=== PATIENT | female | born 1990 | race Asian ===

== ENCOUNTER → 2017-05-02 | Outpatient (CLI) | payer BC | END | disposition home or self-care (01) | LOC: C.PAPS 08:25 | PROVIDERS: ATTEND Obstetrics & Gynecology | DX: Z34.82 Encounter for supervision of other normal pregnancy, second trimester (principal) ==

== ENCOUNTER → 2017-05-02 | Outpatient (CLI) | payer BC ==
[2017-05-02 17:41] LABS: BASO % 0.1 %; BASO ABS # 0.01 K/uL (0-0.2); COMPLETE YES; EOS % 0.6 %; HEMATOCRIT 33.8 % (37-47); IG% 0.3 %; LYMPH % 28.1 %; LYMPH ABS # 2.82 K/uL (1.2-3.4); MEAN CELL VOLUME 70.3 fL (80-100); MEAN CORPUSCULAR HEMOGLOBIN 22.7 pg (25-34); MEAN CORPUSCULAR HGB CONC 32.2 g/dl (32-36); MEAN PLATELET VOLUME 11.4 fL (7.4-10.4); MONO % 5.2 %; NEUT % 65.7 %; PLATELET COUNT 294 K/uL (130-400); RED BLOOD COUNT 4.81 M/uL (4.2-5.4); WHITE BLOOD COUNT 10.05 K/uL (4.8-10.8)
[2017-05-02 18:22] LABS: URINE APPEARANCE CLEAR (CLEAR); URINE BILIRUBIN NEG (NEG); URINE COLOR YELLOW; URINE EPITHELIAL CELL AUTO >30 /lpf (0-5); URINE NITRITE NEG (NEG); URINE SPECIFIC GRAVITY 1.029 (1.000-1.030); UROBILINOGEN NEG (NEG)
[2017-05-02 18:28] LABS: MANUAL MICROSCOPIC REQUIRED? NO; REVIEW REQ? YES
[2017-05-05 13:34] LABS: CHLAMYDIA TRACH RNA*** NOT DETECTED (NOT DETECTED); GC (NEIS GONORRHOEAE)RNA** NOT DETECTED (NOT DETECTED)
== END | disposition home or self-care (01) ==
LOC: C.LAB1850 16:39
PROVIDERS: ATTEND Obstetrics & Gynecology
DX: Z34.82 Encounter for supervision of other normal pregnancy, second trimester (principal); Z3A.00 Weeks of gestation of pregnancy not specified

== ENCOUNTER → 2017-06-03 | Outpatient (CLI) | payer BC ==
[2017-06-03 18:24] LABS: GTGD 50 Grams
== END | disposition home or self-care (01) ==
LOC: C.LAB 17:27
PROVIDERS: ATTEND Obstetrics & Gynecology
DX: Z34.82 Encounter for supervision of other normal pregnancy, second trimester (principal)

== ENCOUNTER → 2017-08-09 | Outpatient (CLI) | payer OTHER ==
[~2017-08-09] MED LIST: FERR1TAB23 PO; MTR600X PO; OXYC-57 PO; PRENTAB65 PO
[2017-08-09 17:45] LABS: HEMATOCRIT 33.1 % (37-47); HEMOGLOBIN 10.6 g/dL (12.0-16.0)
== END | disposition home or self-care (01) ==
LOC: C.LAB1850 17:03
PROVIDERS: ATTEND Obstetrics & Gynecology
DX: Z34.82 Encounter for supervision of other normal pregnancy, second trimester (principal)

== ENCOUNTER → 2017-10-04 | Outpatient (CLI) | payer OTHER | END | disposition home or self-care (01) | LOC: C.LABSPEC 17:36 | PROVIDERS: ATTEND Obstetrics & Gynecology | DX: Z34.83 Encounter for supervision of other normal pregnancy, third trimester (principal) ==

== ENCOUNTER 2017-10-27 17:34 | Outpatient (CLI) | payer OTHER ==
[~2017-10-27] VITALS: Ht 160 cm; Wt 77.0 kg
[~2017-10-27 17:34] MED LIST changes: -MTR600X PO; -OXYC-57 PO
[2017-10-27 17:57] VITALS: Ht 160 cm; Wt 77.0 kg
== END 2017-10-27 20:11 | disposition home or self-care (01) ==
LOC: C.OPB 17:34 → C.LD 17:35 → C.OPB 20:11
PROVIDERS: ATTEND Obstetrics & Gynecology
DX: O62.9 Abnormality of forces of labor, unspecified (principal); O26.893 Other specified pregnancy related conditions, third trimester; Z3A.00 Weeks of gestation of pregnancy not specified

== ENCOUNTER 2017-10-28 07:21 | Inpatient (IN) | payer OTHER ==
[2017-10-21 11:45] VITALS: BMI 29.0
[2017-10-21 12:21] LABS: BASO % 0.1 %; BASO ABS # 0.01 K/uL (0-0.2); EOS % 0.5 %; EOS ABS # 0.04 K/uL (0-0.5); HEMOGLOBIN 12.1 g/dL (12.0-16.0); IG# 0.02 K/uL (0.00-0.02); LYMPH ABS # 1.92 K/uL (1.2-3.4); MEAN CELL VOLUME 74.1 fL (80-100); MEAN CORPUSCULAR HEMOGLOBIN 23.6 pg (25-34); MEAN CORPUSCULAR HGB CONC 31.8 g/dl (32-36); MONO % 5.7 %; NEUT % 71.5 %; NEUT ABS # 6.23 K/uL (1.4-6.5); PLATELET COUNT 224 K/uL (130-400); RED CELL DISTRIBUTION WIDTH CV 15.7 % (11.5-14.5); RED CELL DISTRIBUTION WIDTH SD 42.6 fL (36.4-46.3); WHITE BLOOD COUNT 8.72 K/uL (4.8-10.8)
--- NOTE | 2017-10-25 13:18 | HISTORY & PHYSICAL EXAMINATION ---
DATE OF ADMISSION: 10/28/2017 PREOPERATIVE DIAGNOSES: 1. Intrauterine at 40 and 1/7 weeks. 2. History of previous section, presents for repeat section. HISTORY OF PRESENT ILLNESS: Mercedes is a 27-year-old [place] female 2, para 1-0-0-1 with an EDC of 10/27/2017 who presents on 10/28/2017 for a repeat section. Her first was in February 2016. This was a section delivery for a 7-pound 7-ounce baby for failure to progress. This has been uncomplicated. 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 She has presented for routine care. She has had no labor symptoms up to her visit on October 21 and noted good movement. PAST OBSTETRIC AND GYNECOLOGIC HISTORY: As noted above. Denies abnormal Pap smears or sexually transmitted diseases. ALLERGIES: No known drug allergies. MEDICATIONS: vitamin with iron and clindamycin phosphate external gel. PAST MEDICAL HISTORY: The patient is overall healthy. Denies thyroid disease, asthma, heart disease, heart murmur, diabetes, kidney or liver problems. She does state she had elevated blood pressures in her last . PAST SURGICAL HISTORY: Includes a in February 2016, but no other surgeries. SOCIAL HISTORY: The patient denies tobacco, alcohol or drug use. She lives with her spouse and child. PHYSICAL EXAMINATION: GENERAL: This is a well-developed, well-nourished [place] female in no acute distress. VITAL SIGNS: Blood pressure 122/84, weight 169.6 pounds. NECK: Supple without thyromegaly or lymphadenopathy. CHEST: Clear to auscultation bilaterally. CARDIOVASCULAR: Regular rate and rhythm without murmurs, gallops or rubs. ABDOMEN: Gravid and nontender. EXTREMITIES: Show trace edema, but are otherwise benign. PELVIC: Shows the cervix is closed to fingertip, 50% and -2 station. The baby is vertex. LABORATORY DATA: Blood type O positive, antibody negative, Pap normal, rubella immune, RPR nonreactive, hepatitis B negative, HIV negative, chlamydia and gonorrhea cultures negative. Glucose tolerance test x2 within normal limits. Declined chromosomal testing. GBS positive. ASSESSMENT: This is a 3, para 1-0-0-1 [place] female who presents for a repeat section. The risks of the procedure were discussed with the patient including the risks of anesthesia, bleeding requiring transfusion, infection and poor wound healing, damage to surrounding structures including bowel, bladder, vessels, nerves and ureters with need for further surgery, hospitalization or attention. Discussed the possible injury to the baby. Discussed the other risks of any surgery including heart attack, blood clot, stroke or . Consent reviewed and signed. Surgery is planned for October 28.
[~2017-10-28] VITALS: Ht 160 cm; Wt 76.0 kg
[2017-10-28] VITALS (16 sets, daily range): BP systolic 108–144; BP diastolic 70–85; PULSE 66–90; TEMP 36.9–37.3; O2SAT 96–100; Ht 160 cm; Wt 76.0 kg
[2017-10-28] MEDS ORDERED: CITRIC ACID/SODIUM CITRATE 15 ML UDC PO ONE (08:00)
[2017-10-28] MEDS ORDERED: LACTATED RINGER'S 1000ML 1,000 ML IV SCH (08:00)
[2017-10-28] MEDS ORDERED: CEFAZOLIN IV 2,000 MG in SYRINGE 0 ML IV SCH (08:00)
[2017-10-28 08:25] LABS: BASO % 0.1 %; BASO ABS # 0.01 K/uL (0-0.2); EOS % 0.1 %; EOS ABS # 0.01 K/uL (0-0.5); HEMATOCRIT 36.7 % (37-47); HEMOGLOBIN 12.1 g/dL (12.0-16.0); IG# 0.04 K/uL (0.00-0.02); LYMPH ABS # 1.76 K/uL (1.2-3.4); MEAN CELL VOLUME 73.5 fL (80-100); MEAN CORPUSCULAR HEMOGLOBIN 24.2 pg (25-34); MONO % 3.3 %; MONO ABS # 0.36 K/uL (0.11-0.59); NEUT % 80.1 %; NUCLEATED RED BLOOD CELL ABS 0.03 K/uL (0-0); PLATELET COUNT 227 K/uL (130-400); RED CELL DISTRIBUTION WIDTH CV 15.5 % (11.5-14.5); RED CELL DISTRIBUTION WIDTH SD 41.3 fL (36.4-46.3); WHITE BLOOD COUNT 10.98 K/uL (4.8-10.8)
--- NOTE | 2017-10-28 08:48 | History & Physical Bridge Note ---
H&P Re-Evaluation Bridge Note: I have examined the patient, reviewed the History & Physical and in the interval since the performance of the History & Physical I have noted the following changes of clinical significance: Patient is labor and delivery over the weekend with contractions. No change in cervix. Patient had first c/s in [place]. We have no record of the delivery note. Therefore, we have recommended repeat c/s. Plan to proceed.
[2017-10-28] MEDS ORDERED: FENTANYL CITRATE INJ 50 MCG/1 ML 2 ML VIAL ONE (09:23)
[2017-10-28] MEDS ORDERED: MoRPHine SULFATE PF 1 MG/ML 10 ML AMP/VIAL ONE (09:24)
[2017-10-28] MEDS ORDERED: OXYTOCIN INJ 10 UNITS/ML VIAL ONE ×2 (09:26→10:15)
[2017-10-28] MEDS ORDERED: PHENYLEPHRINE HCL INJ 10 MG/ML VIAL ONE (09:26)
[2017-10-28] MEDS ORDERED: NALOXONE HCL INJ 0.08 MG in SYRINGE 1.8 ML IV PRN (10:18)
[2017-10-28] MEDS ORDERED: SODIUM CHLORIDE 0.9% 1000ML 1,000 ML IV PRN (10:18)
[2017-10-28] MEDS ORDERED: LACTATED RINGER'S 1000ML 500 ML IV PRN (10:18)
[2017-10-28] MEDS ORDERED: NALOXONE HCL INJ 1 MG in SODIUM CHLORIDE 0.9% 1000ML 1,000 ML IV PRN (10:18)
--- NOTE | 2017-10-28 10:26 | [facility] Post Operative Brief Note ---
Immediate Operative Summary Operative Date Oct 28, 2017. Pre-Operative Diagnosis 40 Weeks Gestation; Caesarean Section with Unknown Scar; Pt desires Repeat Caesarean Section. Post-Operative Diagnosis Same as Preop Procedure(s) Performed Live Male at [address] Chau Automobile Locator Surgeon(s) Dr. Coates Estimated Blood Loss 600 Findings Consistent with Post-Op Diagnosis Fluids (cc crystalloids) 2100cc Specimens Placenta (Hold) Cord Blood Drains barajas Anesthesia Type Spinal Complication(s) none Disposition Accompanied Pt To Recover: no Disposition: L&D
[2017-10-28] MEDS ORDERED: DIPHTHERIA/TETANUS/PERTUSSIS 0.5 ML SYR/VIAL IM. ONE (10:30)
[2017-10-28] MEDS ORDERED: LANOLIN OINT EXT PRN (10:30)
[2017-10-28] MEDS ORDERED: MoRPHine SULFATE 2 MG/ML CARP IV PRN (10:30)
[2017-10-28] MEDS ORDERED: DiphenhydrAMINE HCL 50 MG/ML VIAL IV PRN (10:30)
[2017-10-28] MEDS ORDERED: MoRPHine SULFATE PF 1 MG/ML 10 ML AMP/VIAL EPI PRN (10:30)
[2017-10-28] MEDS ORDERED: NALBUPHINE HCL INJ 10 MG/ML AMP IV PRN (10:30)
[2017-10-28] MEDS ORDERED: DC PCA PRN (10:30)
[2017-10-28] MEDS ORDERED: ONDANSETRON INJ 2 MG/ML 2 ML VIAL IV PRN (10:30)
[2017-10-28] MEDS ORDERED: NO NARCOTICS OR SEDATIVES SCH (10:30)
[2017-10-28] MEDS ORDERED: EpHEDrine SULFATE INJ 50 MG/ML AMP IV PRN (10:30)
[2017-10-28] MEDS ORDERED: MEPERIDINE HCL 25 MG/ML CARP IV PRN (10:30)
[2017-10-28] MEDS ORDERED: NALOXONE HCL 0.4 MG/1 ML VIAL/CARP IV PRN (10:30)
[2017-10-28] MEDS ORDERED: KETOROLAC TROMETHAMINE 30 MG/ML VIAL IV. PRN (10:30)
--- NOTE | 2017-10-28 11:01 | Anesthesiology Progress Note ---
Anesthesia Post Op Note Date & Time Oct 28, 2017 at 11:01 Notes Mental Status: alert / awake / arousable, participated in evaluation Pt Amnestic to Procedure: Yes Nausea / Vomiting: adequately controlled Pain: adequately controlled Airway Patency, RR, SpO2: stable & adequate BP & HR: stable & adequate Hydration State: stable & adequate Neuraxial Anesthesia: was administered, sensory block is resolving Anesthetic Complications: no major complications apparent
[2017-10-28] MEDS: OXYTOCIN INJ 20 UNITS in LACTATED RINGER'S 1000ML 1,000 ML IV SCH ×2 (11:11→20:04)
[2017-10-28] MEDS: SIMETHICONE 80 MG CHEW PO SCH ×3 (13:12→20:02)
--- NOTE | 2017-10-28 13:25 | OPERATIVE REPORT ---
DATE OF OPERATION: 10/28/2017 PREOPERATIVE DIAGNOSES: 1. Intrauterine at 40 weeks. 2. History of previous section in [place] with unknown scar. POSTOPERATIVE DIAGNOSES: Same. PROCEDURES: 1. Repeat lower transverse section. 2. Excision of a keloid scar. SURGEON: Marina Chau MD SANDWICH ARTIST: Socorro Coates, PGY1 ESTIMATED BLOOD LOSS: 600 mL. FLUIDS: 2200 mL. URINE OUTPUT: 150 mL clear yellow urine draining from the bladder at the end of the procedure. INDICATIONS: Rolando is a 2, para 1-0-0-1, who presents for repeat section. She had her first section for failure to progress/labor in [place]. We were unable to obtain the operative report, so she has an unknown scar. FINDINGS: Viable infant delivered from cephalic presentation. Apgars pending. Weight pending. Normal uterus, tubes, and ovaries were noted bilaterally. COMPLICATIONS: None. DRAINS: Warren. DISPOSITION: To recovery room in stable condition. DESCRIPTION OF PROCEDURE: The patient was taken to the operating room, where she was identified verbally and by bracelet. She was seated on the operating table where a spinal anesthetic was placed. She was then placed in dorsal supine position with a leftward tilt. A Warren catheter was placed sterilely. The patient was then prepped and draped in normal sterile fashion. A time-out was held identifying correct patient, procedure and positioning. The keloided incision was grasped with an Allis clamp and elevated and the incision was then removed using a knife. This was sent for pathology. The knife was then used to incise down to the fascia. Bleeding was attended to with Bovie electrocautery. The fascia was incised in the midline with the knife and taken out laterally with scissors. The superior edge of the fascial incision was grasped, elevated and the underlying layer of rectus muscle was taken off bluntly and with scissors. In a similar fashion, the inferior edge of the fascial incision was grasped and elevated and the underlying layer of rectus muscle was taken off bluntly and with scissors. The muscles were bluntly and sharply in the midline. The peritoneum was entered bluntly and was taken superiorly and inferiorly sharply with good visualization of the bladder. The incision was stretched. The bladder blade was placed. A bladder flap was created using sharp scissors to enter the vesicouterine peritoneum and taken out laterally. The bladder flap was created digitally with the four corner former machine operator's finger and sharply with the scissors. The hysterotomy incision was scored with a knife. The uterus was entered with a snap. Clear fluid was noted. The incision was then stretched with the four corner former machine operator's hand. The four corner former machine operator's hand was then placed into the uterus. The head was delivered atraumatically. There was no nuchal cord. The rest of the infant was then delivered with fundal pressure. The nose and mouth were bulb suctioned. There was immediate cry. The cord was clamped and cut. The was handed off to awaiting pediatricians for drying and attention. Cord blood was obtained. The placenta was manually extracted. The uterus was cleared of all clot and debris with moistened laparotomy sponges. The hysterotomy incision was then repaired in 2 layers, the first in a running locked layer and the second in an imbricating layer of 0 Vicryl. Three [id number] sutures of 0 Vicryl were needed for hemostasis. The posterior cul-de-sac was then irrigated and cleared of all clot and debris. Hysterotomy incision was again inspected and found to be intact. The uterus was reanteriorized and hysterotomy incision was inspected and found to be hemostatic. The muscles were reapproximated with several interrupted sutures of 0 Vicryl in the midline. The fascia was reapproximated starting at the edges and meeting in the midline. The subcuticular tissue was copiously irrigated with warm normal saline. The bottom part of the incision was undermined using Bovie electrocautery. Bleeding was attended to with Bovie electrocautery and then the skin was closed with subcuticular stitch of 4-0 Vicryl. All sponge, lap and needle counts were correct x2. The patient tolerated the procedure well and was taken to recovery room in stable condition. I attest to the content of the Intraoperative Record and any orders documented therein. Any exception s are noted below.
[2017-10-28] MEDS: DOCUSATE SODIUM 100 MG CAP PO SCH (20:02)
[2017-10-29] VITALS (7 sets, daily range): BP systolic 104–119; BP diastolic 68–83; PULSE 68–90; TEMP 36.8–37.2; O2SAT 96–100
[2017-10-29] MEDS ORDERED: PROMETHAZINE HCL INJ 25 MG in SODIUM CHLORIDE 0.9% 50ML 50 ML IV PRN (03:30)
[2017-10-29] MEDS ORDERED: OXYCODONE/ACETAMINOPHEN 5-325 TAB PO PRN (03:30)
[2017-10-29] MEDS ORDERED: ONDANSETRON INJ 2 MG/ML 2 ML VIAL IV PRN (03:30)
[2017-10-29] MEDS ORDERED: DC INTRASPINAL MORPHINE ONE (03:30)
[2017-10-29] MEDS ORDERED: DiphenhydrAMINE HCL 50 MG/ML VIAL IV PRN (03:30)
[2017-10-29 06:47] LABS: BASO % 0.2 %; BASO ABS # 0.03 K/uL (0-0.2); EOS % 0.8 %; EOS ABS # 0.11 K/uL (0-0.5); HEMOGLOBIN 11.2 g/dL (12.0-16.0); IG# 0.04 K/uL (0.00-0.02); LYMPH % 15.4 %; LYMPH ABS # 2.26 K/uL (1.2-3.4); MEAN CELL VOLUME 73.3 fL (80-100); MEAN CORPUSCULAR HEMOGLOBIN 24.1 pg (25-34); MEAN CORPUSCULAR HGB CONC 32.9 g/dl (32-36); MEAN PLATELET VOLUME 11.9 fL (7.4-10.4); MONO % 6.8 %; MONO ABS # 0.99 K/uL (0.11-0.59); NEUT % 76.5 %; NEUT ABS # 11.21 K/uL (1.4-6.5); PLATELET COUNT 195 K/uL (130-400); RED CELL DISTRIBUTION WIDTH CV 15.3 % (11.5-14.5); RED CELL DISTRIBUTION WIDTH SD 40.8 fL (36.4-46.3); WHITE BLOOD COUNT 14.64 K/uL (4.8-10.8)
--- NOTE | 2017-10-29 07:30 | Progress Note ---
Subjective Oct 29, 2017. Subjective conversation w/ patient, physical exam Ambulation: ambulating normally Voiding: no voiding problems Passing Gas: Yes Diet Tolerance: Regular Diet Lochia: Moderate Feeding Type: Breast Feeding Pain: minimal pain Comment: pt seen and assessed at bedside, no acute events overnight Review of Systems Constitutional: No fever, No chills Respiratory: No cough, No shortness of breath Cardiac: No chest pain, No edema Abdomen: + nausea (2 episodes last night, none today), No vomiting no headaches or calf pain Objective Vital Signs Date Time Temp Pulse Resp B/P (MAP) Pulse Ox O2 Delivery O2 Flow Rate FiO2 10/29/17 03:30 36.8 68 18 113/76 (88) 100 Room Air 10/29/17 03:30 18 100 10/29/17 02:30 16 97 10/29/17 01:30 16 96 10/29/17 00:30 18 100 10/28/17 23:30 18 98 10/28/17 23:15 99 Room Air 10/28/17 23:15 36.9 86 16 112/70 (84) 99 Room Air 10/28/17 22:30 16 96 10/28/17 21:30 18 100 10/28/17 20:30 16 100 10/28/17 19:40 37.0 66 16 108/72 (84) 99 Room Air 10/28/17 19:40 99 Room Air 10/28/17 19:30 16 99 10/28/17 18:30 18 98 10/28/17 17:30 20 99 10/28/17 16:30 16 99 10/28/17 15:30 Room Air 10/28/17 15:30 18 100 10/28/17 15:30 36.9 71 18 125/83 (97) 100 Room Air 10/28/17 14:30 18 100 10/28/17 14:30 37.1 90 18 126/85 (99) 100 Room Air 10/28/17 13:30 37.3 78 18 124/83 (97) 99 Room Air 10/28/17 13:30 18 99 10/28/17 13:07 36.9 73 16 114/74 (87) 100 Room Air 10/28/17 13:00 36.9 73 16 114/74 (87) 100 Room Air 10/28/17 12:30 37.2 68 20 144/80 (101) 99 Room Air 10/28/17 12:30 Room Air 10/28/17 12:30 20 99 Physical Exam General Appearance: WELL-APPEARING, NO APPARENT DISTRESS Respiratory/Chest: chest non-tender, lungs clear, normal breath sounds Cardiovascular: regular rate, rhythm, no edema, no murmur Abdomen: normal bowel sounds, non tender, soft Fundus: Firm, Non-Tender, Relation to Umbilicus (at umbilicus) Incision Description: Clean, Dry & Intact Extremities: normal range of motion, non-tender, normal inspection, no pedal edema, no calf tenderness Laboratory Results Last 24 Hours Test 10/28/17 07:27 10/29/17 06:36 White Blood Count 10.98 K/uL 14.64 K/uL Red Blood Count 4.99 M/uL 4.64 M/uL Hemoglobin 12.1 g/dL 11.2 g/dL Hematocrit 36.7 % 34.0 % Mean Corpuscular Volume 73.5 fL 73.3 fL Mean Corpuscular Hemoglobin 24.2 pg 24.1 pg Mean Corpuscular Hemoglobin Concent 33.0 g/dl 32.9 g/dl Platelet Count 227 K/uL 195 K/uL Neutrophils (%) (Auto) 80.1 % 76.5 % Lymphocytes (%) (Auto) 16.0 % 15.4 % Monocytes (%) (Auto) 3.3 % 6.8 % Eosinophils (%) (Auto) 0.1 % 0.8 % Basophils (%) (Auto) 0.1 % 0.2 % Neutrophils # (Auto) 8.80 K/uL 11.21 K/uL Lymphocytes # (Auto) 1.76 K/uL 2.26 K/uL Monocytes # (Auto) 0.36 K/uL 0.99 K/uL Eosinophils # (Auto) 0.01 K/uL 0.11 K/uL Basophils # (Auto) 0.01 K/uL 0.03 K/uL RDW Standard Deviation 41.3 fL 40.8 fL RDW Coefficient of Variation 15.5 % 15.3 % Immature Granulocyte % (Auto) 0.4 % 0.3 % Immature Granulocyte # (Auto) 0.04 K/uL 0.04 K/uL Nucleated RBC Absolute Count (auto) 0.03 K/uL Nucleated Red Blood Cells % 0.2 % Mean Platelet Volume 11.9 fL Medications Current Inpatient Medications Medications (Trade) Dose Ordered Sig/Kassie Route Start Time Stop Time Status Last Admin Dose Admin Oxycodone/ Acetaminophen (Percocet 5-325mg Tab) 1 tab Q4H PRN PO 10/29/17 03:30 11/12/17 03:29 Oxycodone/ Acetaminophen (Percocet 5-325mg Tab) 2 tab Q4H PRN PO 10/29/17 03:30 11/12/17 03:29 Ibuprofen (Motrin Tab) 600 mg Q4H PRN PO 10/28/17 10:30 11/27/17 10:29 Promethazine HCl 25 mg/Sodium Chloride 51 ml @ 204 mls/hr Q4H PRN IV 10/29/17 03:30 11/28/17 03:29 Ondansetron HCl (Zofran Inj) 4 mg Q4H PRN IV 10/29/17 03:30 11/28/17 03:29 Prenat Multivit/ [place]/Iron/Folic Ac ( Vitamin Tab) 1 tab DAILY PO 10/29/17 08:00 11/28/17 07:59 Docusate Sodium (coLACE CAP) 100 mg BID PO 10/28/17 20:00 11/27/17 19:59 10/28/17 20:02 100 MG Ferrous Sulfate (Feosol Tab) 325 mg DAILY PO 10/29/17 08:00 11/28/17 07:59 Lanolin (Lanolin Oint) PRN PRN EXT 10/28/17 10:30 11/27/17 10:29 Simethicone (Mylicon Chew Tab) 80 mg QID PO 10/28/17 12:28 11/27/17 12:59 10/28/17 20:02 80 MG Diphenhydramine HCl (Benadryl Cap) 25 mg QID PRN PO 10/29/17 03:30 11/28/17 03:29 Diphenhydramine HCl (Benadryl Inj) 25 mg QID PRN IV 10/29/17 03:30 11/28/17 03:29 Assessment and Plan Post-Op Day#: 1 Continue Routine Care: 27 yo POD 1 s/p CS continue routine care encourage ambulation, breast feeding pain control with rx prn Resident Physician Supervision Note: I interviewed and examined the patient. Discussed with Dr. Quintanilla and agree with findings and plan as documented in the note. Any exceptions or clarifications are listed here: [None] Documented By: Huan Centeno Resident Tracking Resident Involvement: Resident Care Provided Care Provided: OB Delivery
[2017-10-29] MEDS: DOCUSATE SODIUM 100 MG CAP PO SCH ×2 (08:29→20:04)
[2017-10-29] MEDS: FERROUS SULFATE 325 MG TAB PO SCH (08:29)
[2017-10-29] MEDS: PRENATAL VITAMIN TAB PO SCH (08:29)
[2017-10-29] MEDS: SIMETHICONE 80 MG CHEW PO SCH ×4 (08:30→20:04)
[2017-10-29] MEDS: OXYCODONE/ACETAMINOPHEN 5-325 TAB PO PRN ×2 (16:44→21:53)
[2017-10-30 00:45] VITALS: BP 125/87; PULSE 72; TEMP 36.9; O2SAT 99
[2017-10-30] MEDS: IBUPROFEN 600 MG TAB PO PRN ×2 (00:52→08:35)
[2017-10-30] MEDS: OXYCODONE/ACETAMINOPHEN 5-325 TAB PO PRN ×2 (00:53→08:36)
[2017-10-30] MEDS ORDERED: MTR600X PO (01:13)
[2017-10-30] MEDS ORDERED: OXYC-57 PO (01:13)
--- NOTE | 2017-10-30 01:13 | Discharge Instructions ---
Discharge Instructions Date of Service Oct 30, 2017. Admission Reason for Admission: Previous Section Delivery Discharge Discharge Diagnosis / Problem: after delivery Discharge Goals Goal(s): Routine recovery after Medications Continue Dispensed Medications: supercream, dermaplast, tucks, lansinoh Activity Recommendations Activity Limitations: as noted below . Instructions / Follow-Up Instructions / Follow-Up ACTIVITY RECOMMENDATIONS: * Gradual return to full activity over the next 2-3 weeks. * No lifting - nothing heavier than baby over the next 2-3 weeks. * Do not engage in vigorous exercise, sexual activity or sports until cleared by your physician. * Do not drive or operate any motorized equipment until cleared by your physician. * You may shower/bathe daily. MEDICATIONS: For discomfort or pain, you may use Acetaminophen (Tylenol), Ibuprofen (Advil), or Naproxen (Aleve) following the package directions. For constipation you may use Colace following the package directions. BREAST CARE: If you are not breast feeding: * Wear a supportive bra 24 hours a day for one to two weeks. * Avoid stimulating your breasts and nipples as much as possible during the first few weeks after delivery. * When taking a shower, have the warm water hit your back, not breasts. * When your breasts feel full, apply ice packs. Usually three to four times a day helps ease the discomfort. * Take a mild pain medication (Tylenol / Motrin) when you are uncomfortable. If breast feeding: * Use breast milk to lubricate nipples. Lansinoh cream may be used for sore nipples. You do not need to remove cream prior to breast feeding. If using a different brand of cream, check the label for directions regarding removal of cream prior to nursing. * Wear a supportive bra. * If having problems with breasts or breast feeding, call a homemaking rehabilitation consultant or your health care provider. SPECIAL CARE INSTRUCTIONS: When you are discharged from the hospital, it is important for you to follow the instructions listed below: * During the first week at home, you should be able to care for yourself and your baby. In addition, the usual light household activities are encouraged. * Limit your activities to the way you feel. Do not try to clean the house or move furniture. Be sensible. * If you actively engage in sports and have done so up until the time of your delivery, you may resume these activities as soon as you feel able. This may take up to one month or even longer. Use good judgment. * Continue to take your vitamins for at least six weeks after the of your baby. * Your diet need not be limited unless you were on a special diet before your delivery. Breast-feeding mothers need around 2500 calories per day and at least 64-80 ounces of fluid per day (8 to 10 glasses). * You should eat foods from the four major food groups. Crash diets or fad diets are to be avoided. Eating lean meats, fresh fruits and vegetables, low-fat dairy products, high fiber foods and a regular exercise program, will help you get back to your pre- weight without putting your health at risk. * Constipation is sometimes a problem after delivery. Take a mild laxative as needed. If breast feeding, Milk of Magnesia is acceptable to use. You may use a suppository or Fleets enema. * A daily shower or tub bath is suggested. Wash incision daily with warm soapy water and pat dry. It doesn't need to be covered unless drainage is present. * A bloody vaginal discharge will usually continue until around four weeks . A small amount of bleeding may continue for as long as six weeks. Vaginal discharge changes from the bright red bleeding after delivery to pink then brownish and finally yellowish-pink before becoming white and disappearing. * Bleeding may increase with activity. Your first period may come in 4-8 weeks. If you are breast feeding, your period may be delayed even longer. * [place] (sex) can begin whenever both you and your partner feel comfortable and do not have any form of genital infection. It is recommended that you wait at least six weeks for internal and external healing to occur. If you have questions, please talk to your health care practitioner. A condom should be used to prevent infection and . * Foreplay, gentle intercourse and lubrication is very important the first several times to prevent pain. A water-based lubricant such as K-Y jelly or Astroglide may be used. * If you have RH negative blood and your baby is RH positive, you will receive RHOGAM by injection prior to discharge. The nurse will give you a card to keep with you that has the date and place that you received RHOGAM after delivery. * During your care, you had a Rubella screen done to check for the presence of rubella antibodies in your blood. If your test was negative, you will receive a Rubella vaccine prior to discharge. This vaccine may cause a fever, soreness at the injection site and flu-like symptoms. If these symptoms persist, notify your health care practitioner. is not advised for one month after a Rubella vaccine. * Verbalizes understanding of car seat law as reviewed with patient nursing. * Car Seat hand-out given and reviewed with patient by nursing. * Shaken baby information reviewed with patient by nursing. Call you doctor if: * Heavy bleeding (saturating several pads an hour) or passing clots the size of your fist. * A fever >101 degrees F (38.3 degrees C) on two occasions four hours apart and /or chills. * Unusual pain in the pelvic or vaginal areas. * Call the doctor for any increased redness, drainage or swelling around the incision and any pain unrelieved by prescribed pain medication. * "Baby Blues" lasting longer than two weeks. If you have any questions or concerns, call your health care practitioner at . FOLLOW UP VISIT: * Please call the office at to schedule a 6 week examination. It is important you keep this appointment. It is important for you to make arrangements for either yearly or twice yearly check-ups thereafter. Current Hospital Diet Patient's current hospital diet: Vegetarian Diet Discharge Diet Recommended Diet: Regular Diet Procedures Procedures Performed: Live Male at 0958 Pending Studies Studies pending at discharge: no Medical Emergencies . Who to Call and When: Medical Emergencies: If at any time you feel your situation is an emergency, please call [phone] immediately. . Non-Emergent Contact Non-Emergency issues call your: [facility] . . "Provider Documentation" section prepared by Yvette Pastor. . [place] Drug Monitoring Program Search Results: patient reviewed within database, no issues identified
--- NOTE | 2017-10-30 06:45 | Progress Note ---
Subjective Oct 30, 2017. Subjective conversation w/ patient, physical exam Ambulation: ambulating normally Voiding: no voiding problems Passing Gas: Yes Diet Tolerance: Regular Diet Lochia: Small Feeding Type: Breast Feeding Pain: Improving daily, well controlled Comment: seen and assessed at bedside; no acute events overnight Review of Systems Constitutional: No fever, No chills Respiratory: No cough, No shortness of breath Cardiac: No chest pain, No edema Abdomen: No nausea, No vomiting no headaches or calf pain Objective Vital Signs Date Time Temp Pulse Resp B/P (MAP) Pulse Ox O2 Delivery O2 Flow Rate FiO2 10/30/17 00:45 36.9 72 20 125/87 (100) 99 Room Air 10/29/17 23:30 36.9 69 18 104/72 (83) Room Air 10/29/17 23:30 Room Air 10/29/17 13:55 37.2 90 18 119/83 (95) Room Air 10/29/17 13:55 Room Air 10/29/17 08:15 Room Air 10/29/17 07:42 37.1 80 18 107/68 (81) 97 Room Air Physical Exam General Appearance: WELL-APPEARING Respiratory/Chest: chest non-tender, lungs clear, normal breath sounds Cardiovascular: regular rate, rhythm, no edema, no murmur Abdomen: normal bowel sounds, non tender Fundus: Firm, Non-Tender, Relation to Umbilicus (3-4 below) Incision Description: Clean, Dry & Intact Extremities: normal range of motion, non-tender, normal inspection, no pedal edema, no calf tenderness Laboratory Results Last 24 Hours Test 10/30/17 06:00 Medications Current Inpatient Medications Medications (Trade) Dose Ordered Sig/Kassie Route Start Time Stop Time Status Last Admin Dose Admin Oxycodone/ Acetaminophen (Percocet 5-325mg Tab) 1 tab Q4H PRN PO 10/29/17 03:30 11/12/17 03:29 10/30/17 00:53 1 TAB Oxycodone/ Acetaminophen (Percocet 5-325mg Tab) 2 tab Q4H PRN PO 10/29/17 03:30 11/12/17 03:29 Ibuprofen (Motrin Tab) 600 mg Q4H PRN PO 10/28/17 10:30 11/27/17 10:29 10/30/17 00:52 600 MG Promethazine HCl 25 mg/Sodium Chloride 51 ml @ 204 mls/hr Q4H PRN IV 10/29/17 03:30 11/28/17 03:29 Ondansetron HCl (Zofran Inj) 4 mg Q4H PRN IV 10/29/17 03:30 11/28/17 03:29 Prenat Multivit/ [place]/Iron/Folic Ac ( Vitamin Tab) 1 tab DAILY PO 10/29/17 08:00 11/28/17 07:59 10/29/17 08:29 1 TAB Docusate Sodium (coLACE CAP) 100 mg BID PO 10/28/17 20:00 11/27/17 19:59 10/29/17 20:04 100 MG Ferrous Sulfate (Feosol Tab) 325 mg DAILY PO 10/29/17 08:00 11/28/17 07:59 10/29/17 08:29 325 MG Lanolin (Lanolin Oint) PRN PRN EXT 10/28/17 10:30 11/27/17 10:29 Simethicone (Mylicon Chew Tab) 80 mg QID PO 10/28/17 12:28 11/27/17 12:59 10/29/17 20:04 80 MG Diphenhydramine HCl (Benadryl Cap) 25 mg QID PRN PO 10/29/17 03:30 11/28/17 03:29 Diphenhydramine HCl (Benadryl Inj) 25 mg QID PRN IV 10/29/17 03:30 11/28/17 03:29 Assessment and Plan Post-Op Day#: 2 Continue Routine Care: 27yo POD 2 s/p CS Doing well, continue routine care Encourage ambulation and breast feeding Pain control with rx prn Likely home tomorrow Resident Physician Supervision Note: I was present with Dr. Coates during the history and exam. I discussed the case with the resident and agree with the findings and plan as documented in the note. Any exceptions or clarifications are listed here: Doing well. Rh pos , rubella immune, breast feeding. pain well controlled. denies other complaints or needs. Documented By: Yvette Pastor Resident Tracking Resident Involvement: Resident Care Provided Care Provided: OB Delivery
[2017-10-30 07:07] LABS: HEMATOCRIT 34.7 % (37-47); HEMOGLOBIN 11.4 g/dL (12.0-16.0)
[2017-10-30 07:30] VITALS: BP_SYST 112; BP_SYST 124; BP_DIAS 73; BP_DIAS 82; PULSE 73; PULSE 81; TEMP 36.6; TEMP 36.7; O2SAT 98
[2017-10-30] MEDS: FERROUS SULFATE 325 MG TAB PO SCH (08:34)
[2017-10-30] MEDS: SIMETHICONE 80 MG CHEW PO SCH ×3 (08:34→19:50)
[2017-10-30] MEDS: DOCUSATE SODIUM 100 MG CAP PO SCH ×2 (08:34→19:50)
[2017-10-30] MEDS: PRENATAL VITAMIN TAB PO SCH (08:34)
[2017-10-30 16:00] VITALS: BP 119/81; PULSE 78; TEMP 36.7; O2SAT 98
[2017-10-30 23:20] VITALS: BP 116/77; PULSE 71; TEMP 36.7
--- NOTE | 2017-10-31 07:54 | Progress Note ---
Subjective Oct 31, 2017. Subjective conversation w/ patient, physical exam Ambulation: ambulating normally Voiding: no voiding problems Passing Gas: Yes Diet Tolerance: Regular Diet Lochia: Small Feeding Type: Breast Feeding Pain: minimal, well controlled Review of Systems Constitutional: No fever, No chills Respiratory: No cough, No shortness of breath Cardiac: No chest pain, No edema Abdomen: No nausea, No vomiting no headaches or calf pain Objective Vital Signs Date Time Temp Pulse Resp B/P (MAP) Pulse Ox O2 Delivery O2 Flow Rate FiO2 10/30/17 23:20 Room Air 10/30/17 23:20 36.7 71 18 116/77 (90) Room Air 10/30/17 16:00 98 Room Air 10/30/17 16:00 36.7 78 18 119/81 (94) 98 Room Air Physical Exam General Appearance: WELL-APPEARING, NO APPARENT DISTRESS Respiratory/Chest: lungs clear, normal breath sounds Cardiovascular: regular rate, rhythm, no edema, no murmur Abdomen: normal bowel sounds, non tender Fundus: Firm, Non-Tender, Relation to Umbilicus (2-3 below) Incision Description: Clean, Dry & Intact Extremities: normal range of motion, non-tender, normal inspection, no pedal edema, no calf tenderness Laboratory Results Date Time Temp Pulse Resp B/P (MAP) Pulse Ox O2 Delivery O2 Flow Rate FiO2 10/30/17 23:20 Room Air 10/30/17 23:20 36.7 71 18 116/77 (90) Room Air 10/30/17 16:00 98 Room Air 10/30/17 16:00 36.7 78 18 119/81 (94) 98 Room Air Medications Current Inpatient Medications Medications (Trade) Dose Ordered Sig/Kassie Route Start Time Stop Time Status Last Admin Dose Admin Oxycodone/ Acetaminophen (Percocet 5-325mg Tab) 1 tab Q4H PRN PO 10/29/17 03:30 11/12/17 03:29 10/30/17 08:36 1 TAB Oxycodone/ Acetaminophen (Percocet 5-325mg Tab) 2 tab Q4H PRN PO 10/29/17 03:30 11/12/17 03:29 Ibuprofen (Motrin Tab) 600 mg Q4H PRN PO 10/28/17 10:30 11/27/17 10:29 10/30/17 08:35 600 MG Promethazine HCl 25 mg/Sodium Chloride 51 ml @ 204 mls/hr Q4H PRN IV 10/29/17 03:30 11/28/17 03:29 Ondansetron HCl (Zofran Inj) 4 mg Q4H PRN IV 10/29/17 03:30 11/28/17 03:29 Prenat Multivit/ Klemme/Iron/Folic Ac ( Vitamin Tab) 1 tab DAILY PO 10/29/17 08:00 11/28/17 07:59 10/30/17 08:34 1 TAB Docusate Sodium (coLACE CAP) 100 mg BID PO 10/28/17 20:00 11/27/17 19:59 10/30/17 19:50 100 MG Ferrous Sulfate (Feosol Tab) 325 mg DAILY PO 10/29/17 08:00 11/28/17 07:59 10/30/17 08:34 325 MG Lanolin (Lanolin Oint) PRN PRN EXT 10/28/17 10:30 11/27/17 10:29 Simethicone (Mylicon Chew Tab) 80 mg QID PO 10/28/17 12:28 11/27/17 12:59 10/30/17 19:50 80 MG Diphenhydramine HCl (Benadryl Cap) 25 mg QID PRN PO 10/29/17 03:30 11/28/17 03:29 Diphenhydramine HCl (Benadryl Inj) 25 mg QID PRN IV 10/29/17 03:30 11/28/17 03:29 Assessment and Plan Post-Op Day#: 3 Continue Routine Care: 27 yo female POD 3 s/p repeat CS Doing well Home today, discharge instructions reviewed Questions answered regarding abdominal cosmesis after , lifting restrictions 6 week f/u with Dr. Chau Resident Physician Supervision Note: I interviewed and examined the patient. Discussed with Dr. Coates and agree with findings and plan as documented in the note. Any exceptions or clarifications are listed here: Doing well. Many questions asked. d/c instructions reviewed. Documented By: Marina Chau Resident Tracking Resident Involvement: Resident Care Provided Care Provided: OB Delivery
[2017-10-31 08:11] VITALS: BP 136/82; PULSE 83; TEMP 37.5; O2SAT 98
[2017-10-31] MEDS: SIMETHICONE 80 MG CHEW PO SCH ×2 (08:54→13:31)
[2017-10-31] MEDS: FERROUS SULFATE 325 MG TAB PO SCH (08:54)
[2017-10-31] MEDS: PRENATAL VITAMIN TAB PO SCH (08:54)
[2017-10-31] MEDS: DOCUSATE SODIUM 100 MG CAP PO SCH (08:55)
[2017-10-31] MEDS: IBUPROFEN 600 MG TAB PO PRN (09:57)
[2017-10-31 15:35] VITALS: BP 114/76; PULSE 78; TEMP 36.7; O2SAT 98
[2017-10-31 16:45] VITALS: BP_DIAS 76; PULSE 78; TEMP 36.7
== END 2017-10-31 17:05 | disposition home or self-care (01) | DRG 766 ==
LOC: C.LD 07:21 → EDSTATUS 09:00 → C.OBG 12:25
PROVIDERS: ADMIT Obstetrics & Gynecology; ATTEND Obstetrics & Gynecology
PROC: 0HB7XZX Excision of Abdomen Skin, External Approach, Diagnostic (ICD-10-PCS; principal; 2017-10-28 09:00)
PROC: 10D00Z1 Extraction of Products of Conception, Low, Open Approach (ICD-10-PCS; principal; 2017-10-28 09:00)
DX: O34.219 Maternal care for unspecified type scar from previous cesarean delivery (principal); O99.72 Diseases of the skin and subcutaneous tissue complicating childbirth; L91.0 Hypertrophic scar; Z3A.40 40 weeks gestation of pregnancy; Z37.0 Single live birth; Z22.330 Carrier of Group B streptococcus

== ENCOUNTER → 2018-02-20 | Outpatient (CLI) | payer OTHER ==
[~2018-02-20] MED LIST changes: +MTR600X PO; +OXYC-57 PO
== END | disposition home or self-care (01) ==
LOC: C.LABBC 14:23
PROVIDERS: ATTEND Obstetrics & Gynecology
DX: L65.9 Nonscarring hair loss, unspecified (principal)

== ENCOUNTER → 2018-03-04 | Outpatient (CLI) | payer OTHER ==
[~2018-03-04] MED LIST changes: +GADAVIST IV PRN
--- NOTE | 2018-03-04 14:43 | DIAGNOSTIC IMAGING REPORT ---
BRAIN COMBO CLINICAL HISTORY: HEADACHE COMPARISON STUDY: No previous studies for comparison. TECHNIQUE: Utilizing a 1.5 Heidy magnet and dedicated coil, multiplanar, multiecho imaging of the brain was performed pre and postcontrast administration. IV administration of 8 mL of Gadavist contrast was uneventful. FINDINGS: Diffusion images are negative for an acute ischemic insult. Solitary small focus of increased signal posterior right frontal lobe coronal section 11. This shows no significant postcontrast enhancement. No additional foci of increased signal are identified. Ventricular system is midline. Sella and parasellar regions are unremarkable. The internal auditory canals are symmetric. IMPRESSION: 1. Small solitary focus of increased signal posterior right frontal lobe. 2. This is in the absence of any additional findings with no abnormal postcontrast enhancement. 3. It is most common in a patient with a history of chronic headache. The above report was generated using voice recognition software. It may contain grammatical, syntax or spelling errors. Electronically signed by: Denys Hernandez M.D. 03/04/2018 2:42 PM Dictated Date/Time: 03/04/2018 2:33 PM
== END | disposition home or self-care (01) ==
LOC: C.MRIBC 13:48
PROVIDERS: ATTEND Psychiatry & Neurology Neurology
DX: R94.02 Abnormal brain scan (principal); R51 Headache